=== PATIENT | female | born 1980 | race Caucasian/White ===

== ENCOUNTER 2021-08-03 21:22 | Emergency (ER) | payer SELFPAY ==
[~2021-08-03] VITALS: Ht 167.6 cm; Wt 95.3 kg
--- NOTE | 2021-08-03 21:51 | NUR ---
RECEIVED PATIENT POST FALL FROM [facility] , COMPLAINING OF PAIN ON LEFT FOOT , NO SWELLING NOTED
[2021-08-03] MEDS ORDERED: IBUPROFEN 800 MG TABLET PO ONE (22:00)
--- NOTE | 2021-08-03 22:08 | NUR ---
PATIENT IS PICKED UP FOR CT SCAN AND XRAY
[2021-08-03] MEDS ORDERED: IBUPROFEN 400 MG TABLET ONE (22:20)
--- NOTE | 2021-08-03 22:25 | NUR ---
PATIENT IS BACK FROM CT SCAN / XRAY
--- NOTE | 2021-08-03 23:28 | NUR ---
AT BEDSIDE TO EXPLAIN RESULTS OF XRAYAND CT SCAN
[2021-08-03] MEDS ORDERED: IBUP800T54 PO (23:34)
--- NOTE | 2021-08-03 23:47 | NUR ---
AMBULATORY , DENIES DISTRESS , VERBALIZES UNDERSTANDING OF PRESCRIPTION , AND XRAY RESULTS AND CT SCAN
== END 2021-08-03 23:49 | disposition home or self-care (01) ==
LOC: ER 21:27
DX: S00.83XA Contusion of other part of head, initial encounter (principal); M79.18 Myalgia, other site; W19.XXXA Unspecified fall, initial encounter; Y92.89 Other specified places as the place of occurrence of the external cause; F17.210 Nicotine dependence, cigarettes, uncomplicated; R03.0 Elevated blood-pressure reading, without diagnosis of hypertension
CPT/HCPCS: 70450; 71045; 73610; 73630; A4663